=== PATIENT | male | born 1945 | race Caucasian/White ===

== ENCOUNTER 2017-08-24 09:46 | Day surgery (SDC) | payer MEDICARE, OTHER, SELFPAY ==
[2017-08-23 08:21] VITALS: BP 134/74; PULSE 83; RESP 17; TEMP 36.8; O2SAT 97; BMI 28.2
--- NOTE | 2017-08-23 08:47 | SDCEKG_ITS ---
Test Reason : Blood Pressure : / mmHG Vent. Rate : 077 BPM Atrial Rate : 069 BPM P-R Int : 000 ms QRS Dur : 084 ms QT Int : 368 ms P-R-T Axes : 000 046 045 degrees QTc Int : 416 ms Atrial fibrillation Abnormal ECG Confirmed by SHAHID VEGAS ([id number]), news assignment editor JAY SMITH ([id number]) on 08/25/2017 12:09:35 PM Referred By: Elder Torrez Confirmed By:SHAHID VEGAS
[2017-08-23 09:11] LABS: Hematocrit 42.6 % (40-54); Hemoglobin 14.9 g/dl (13.0-16.5); Mean Corpuscular Hgb 33.3 pg (27.0-32.0); Mean Corpuscular Volume 95.1 fL (80-94); Mean Platelet Vol. 11.5 fl (6.2-12.0); Platelet Count 160 K/mm3 (150-450); RBC Distribution Width CV 12.9 % (11.6-14.6); RBC Distribution Width SD 44.6 fl (35.1-43.9); Red Blood Count 4.48 M/mm3 (4.6-6.2); White Blood Count 7.3 K/mm3 (4.4-11.0)
[2017-08-23 09:12] LABS: Scan Indicated on CBC? Y/N NO
[2017-08-24] VITALS (10 sets, daily range): BP systolic 111–145; BP diastolic 62–83; PULSE 79–93; RESP 12–18; TEMP 36.6–37.3; O2SAT 96–98; BMI 28.2
--- NOTE | 2017-08-24 | PROS_PTH ---
PATIENT: LUZMA JACOBS LOC: [facility] [place] U#:[id number] AGE/SX: 72/M ROOM: RE08/24/[address]: Dr. Elder Torrez MD : [id number] BED: DIS: 08/25/2017 SPEC #: [id number] RECD: 08/25/17 09:27 STATUS: HALEY MALIK #: [id number] PANKAJ: 08/24/17 00:[address]: Elder Torrez DEPT: SURGICAL PATHOLOGY RECD BY: Juan Jha ENTERED: 08/25/17 09:28 SP TYPE: TURP OTHR DR: Dr. Aubrey Slade MD Tissues: Prostate, NOS Procedures: Surgery Specimen Level IV HEADER OPERATION: Cysto, TUR, prostate, Olymp[employer] PRE-OP DIAGNOSIS: Benign prostatic hypertrophy TISSUE SUBMITTED: Prostate chips MICROSCOPIC DIAGNOSIS Prostate, transurethral resection: Benign nodular hyperplasia, glandular and stromal types. Focal acute inflammation. AM:laura 08/26/17 MICROSCOPIC DESCRIPTION Slides are reviewed. GROSS DESCRIPTION Received is one container labeled with the patient's name and designated prostate chips. The specimen consists of multiple irregular fragments of pink-fuentes, rubbery, soft tissue that in aggregate weigh 28.8 gm and measure in aggregate 8 x 8 x 1.6 cm. Spike Machine Feeder portions are submitted in 12 cassettes. / AM:laura 08/25/17 TC:2 CPT: 88322
[2017-08-24 10:16] LABS: Prothrombin Time Fingerstick 13.8 SEC (11.9-14.4)
[2017-08-24] MEDS: Cefazolin 2 GM in 0.9% Normal Saline 100 ML IV (12:51)
--- NOTE | 2017-08-24 14:08 | PCM.OPRPT ---
Problem List (1) Urinary retention due to benign prostatic hyperplasia Status: Acute Report of Operation Date of Procedure: 08/24/17 Pre-Operative Diagnosis: Urinary retention and BPH Post-Operative Diagnosis: Same Surgery/Procedure Performed:: Transurethral resection of the prostate Description of Surgical Findings:: 72-year-old male taken back to the operating room at the smooth induction of general anesthesia he is placed in dorsal lithotomy position went of the bladder with a 21 [place] rigid cystourethroscope had a very large prostate lateral lobes and a very large median lobe I then switched over to the 26 [place] resectoscope and resected the median lobe and resected the right lobe of the prostate and the left lobe the prostate then pulled back to the sphincter resected the apical tissue in the right side and the left side than Ellik out of the chips obtained good hemostasis after the resection was complete at a wide open channel from the sphincter all the way into the bladder although extract obstructive tissue was resected but there is no resection past the verumontanum. Placed a three-way catheter into the bladder on continuous bladder irrigation the urine was nice and clear and is taken back to PACU in good condition. Type of Anesthesia:: General Drains: 22 fr donaldson - Admit VTE Documentation VTE Present on Admission: No VTE Mechan Device Prophylaxis: SCD's
[2017-08-24] MEDS: 0.9% Normal Saline 1,000 ML 75 ML IV (17:16)
[2017-08-24] MEDS: Docusate Sodium 100 MG Capsule PO (20:11)
[2017-08-24] MEDS: Ciprofloxacin 500 MG Tablet PO (20:11)
[2017-08-24] MEDS: Metoprolol(XL)Succ 50 MG Tablet PO (20:11)
[2017-08-25 04:11] VITALS: BP 102/56; PULSE 83; RESP 16; TEMP 36.7; O2SAT 97
[2017-08-25] MEDS: 0.9% Normal Saline 1,000 ML 75 ML IV (06:31)
--- NOTE | 2017-08-25 07:12 | PCM.DC.URO ---
Discharge Diet: Light diet - advance as tolerated Discharge Activity: Return to Normal Activity, May not drive while taking narcotic pain medications. Call your doctor if your incision/area has: Continuous Slow Oozing, Sudden Increased Bleeding, Increased Pain/ Swelling, Increased Redness, Foul Smelling Discharge, Swelling at the incision site Suture Line Care: Avoid Pulling/Pushing, Avoid Pinching/Bending Instructions: Transurethral Resection of the Prostate (TURP): Home Recovery Additional Instructions: resume coumadin in 1 week Allergies/Adverse Reactions: Allergies No Known Allergies Allergy (Verified 08/23/17 08:14) Medications to take at Discharge Acetaminophen [Tylenol] 500 mg PO Q6H PRN PRN 08/23/17 Aspirin [Aspir-Low] 81 mg PO DAILY 08/23/17 Metoprolol Succinate [Toprol Xl] 50 mg PO BID 08/23/17 Ciprofloxacin [Cipro] 500 mg PO BID #14 tab 08/25/17 Docusate Sodium [Colace] 100 mg PO BID #20 cap 08/25/17 Primary Care Physician: Aubrey Slade [Primary Care Provider] - Please Follow Up With: Elder Torrez MD When: TuesdaySep 12 at 9am post op check,
[2017-08-25 07:29] VITALS: BP 117/73; PULSE 73; RESP 14; TEMP 36.5; O2SAT 98
--- NOTE | 2017-08-25 08:01 | NURSING ---
iv fluids d/c'ed and donaldson d/juliana at this time per physician orders. Patient tolerated well. Pt. assisted with cleaning of drainaged and given new gown and linens. Patient assisted to recliner- SBA- at this time and is eating breakfast. Notified that he must urinate x3 prior to d/c today.
[2017-08-25 10:19] VITALS: PULSE 71
[2017-08-25] MEDS: Pantoprazole Sodium 40 MG Tablet PO (10:19)
[2017-08-25] MEDS: Docusate Sodium 100 MG Capsule PO (10:19)
[2017-08-25] MEDS: Ciprofloxacin 500 MG Tablet PO (10:19)
[2017-08-25] MEDS: Metoprolol(XL)Succ 50 MG Tablet PO (10:19)
== END 2017-08-25 12:34 | disposition home or self-care (01) ==
LOC: SDC 09:46 → AC 09:47 → MS3 14:29
PROVIDERS: Anesthesiology; Family Provider Family Medicine; PCP Family Medicine; Visit Provider Urology
PROC: (CPT 52601; principal; 2017-08-24 11:45)
DX: N40.1 Benign prostatic hyperplasia with lower urinary tract symptoms (principal); N41.0 Acute prostatitis; N13.8 Other obstructive and reflux uropathy; R33.8 Other retention of urine; I48.91 Unspecified atrial fibrillation; I10 Essential (primary) hypertension; H91.90 Unspecified hearing loss, unspecified ear; Z79.82 Long term (current) use of aspirin; Z79.899 Other long term (current) drug therapy; Z87.442 Personal history of urinary calculi; Z87.440 Personal history of urinary (tract) infections
CPT/HCPCS: 00914; 52601; 36416; 85027; 85610; 88305; 93005; J7030; J7120; J2405